=== PATIENT | male | born 1970 | race Caucasian/White ===

== ENCOUNTER 2024-11-23 17:25 | Emergency (ER) | payer BC ==
[~2024-11-23] VITALS: Ht 172.7 cm; Wt 79.4 kg
[2024-11-23 18:24] LABS: PLATELET COUNT (AUTO) 163 K/uL (150-450); RED BLOOD CELL COUNT(AUTO) 5.07 MIL/uL (4.5-6.0); RED CELL DISTRIBUTION WIDTH 13.0 % (11.5-15.0); WHITE BLOOD COUNT (AUTO) 6.2 K/uL (4.3-11.0)
[2024-11-23 18:31] LABS: CALCIUM, SERUM 8.7 mg/dL (8.5-10.1); CREATININE 1.1 mg/dL (0.6-1.3); SODIUM SERUM 140 mmol/L (136-145); UREA NITROGEN, BLOOD 17 mg/dL (7-18)
[2024-11-23 18:56] LABS: NT-PRO BNP 44 pg/mL (0-125)
[2024-11-23 21:58] VITALS: BP 120/78; TEMP 98; O2SAT 96
== END 2024-11-23 21:59 | disposition home or self-care (01) ==
LOC: ER 17:47
DX: R07.89 Other chest pain (principal); R06.02 Shortness of breath; R11.0 Nausea; K58.9 Irritable bowel syndrome, unspecified; F41.9 Anxiety disorder, unspecified; Z92.241 Personal history of systemic steroid therapy
CPT/HCPCS: 36415; 71045-TC; 80048-TC; 83880; 84484-TC; 85025-TC